=== PATIENT | male | born 1980 | race African-American/Black ===

== ENCOUNTER 2017-02-12 16:41 | Emergency (ER) | payer OTHER ==
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
== END 2017-02-12 18:09 | disposition home or self-care (01) ==
LOC: CFTX 16:41
DX: S13.4XXA Sprain of ligaments of cervical spine, initial encounter (principal); S33.5XXA Sprain of ligaments of lumbar spine, initial encounter; S23.3XXA Sprain of ligaments of thoracic spine, initial encounter; F17.210 Nicotine dependence, cigarettes, uncomplicated; V49.40XA Driver injured in collision with unspecified motor vehicles in traffic accident, initial encounter; Y93.89 Activity, other specified; Y92.410 Unspecified street and highway as the place of occurrence of the external cause
CPT/HCPCS: 72040; 72072; 72100; 73502; 99284